=== PATIENT | female | born 1990 | race Caucasian/White ===

== ENCOUNTER 2017-09-13 20:00 | Emergency (ER) | payer MEDICAID ==
[2017-09-13 20:06] VITALS: BP 142/92
[2017-09-13] MEDS ORDERED: Cyclobenzaprine 10 MG Tab PO ONE (20:40)
--- NOTE | 2017-09-13 20:46 | EDM.PDOC ---
ED HPI GENERAL MEDICAL PROBLEM - General Chief Complaint: Back Pain or Injury Stated Complaint: BACK PAIN [id number] Time Seen by Provider: 09/13/17 20:41 Source of Information: Reports: Patient History Limitations: Reports: No Limitations - History of Present Illness INITIAL COMMENTS - FREE TEXT/NARRATIVE: states slipped on ice fell hurting low back last week unable to sleep comfortably since. did try motrin helped very little. states unable to get into see PMD. Bilateral Lower Back Pain Score (Numeric/FACES): 8 - Related Data Allergies Allergy/AdvReac Type Severity Reaction Status Date / Time amoxicillin [Amoxicillin] Allergy Rash Verified 09/13/17 20:06 Penicillins Allergy Rash Verified 09/13/17 20:06 Home Meds: Home Meds Insulin Aspart [Novolog] 1 unit SQ TID 09/05/13 [History] predniSONE 20 mg PO BRK 09/05/13 [History] Furosemide [Lasix] 40 mg PO DAILY 09/13/17 [History] Magnesium 30 mg PO DAILY 09/13/17 [History] Potassium 99 mg PO DAILY 09/13/17 [History] Spironolactone [Aldactone] 100 mg PO DAILY 09/13/17 [History] Ursodiol 500 mg PO BID 09/13/17 [History] Past Medical History - Past Health History Medical/Surgical History: Denies Medical/Surgical History Gastrointestinal History: Reports: Cholelithiasis, Hepatitis Other Gastrointestinal History: autoimmune hepatitis Endocrine/Metabolic History: Reports: Diabetes, Type I - Infectious Disease History Infectious Disease History: Reports: Hepatitis non A,B,C Social & Family History - Family History Family Medical History: Noncontributory - Tobacco Use Smoking Status *Q: Never Smoker Second Hand Smoke Exposure: No - Alcohol Use Days Per Week of Alcohol Use: 0 - Recreational Drug Use Recreational Drug Use: No - Living Situation & Occupation Living situation: Reports: with Family ED ROS GENERAL - Review of Systems Review Of Systems: ROS reveals no pertinent complaints other than HPI. ED EXAM,LOWER BACK PAIN/INJURY - Physical Exam Exam: See Below Exam Limited By: No Limitations General Appearance: Alert, WD/WN, Mild Distress, Other Ears: Hearing Grossly Normal Throat/Mouth: Normal Voice, No Airway Compromise Head: Atraumatic Neck: Non-Tender, Full Range of Motion Respiratory/Chest: No Respiratory Distress Cardiovascular: Regular Rate, Rhythm GI/Abdominal: Soft, Non-Tender Back Exam: Muscle Spasm, Paraspinal Tenderness, Other (bilateral L3-4-5 without radiculitis) Neurological: Alert, No Motor/Sensory Deficits, Oriented x 3 Psychiatric: Flat Affect Skin Exam: Warm, Dry, Normal Color Lymphatic: No Adenopathy Course - Vital Signs Last Recorded V/S: Last Vital Signs Temp 37.0 C 09/13/17 20:02 Pulse 126 H 09/13/17 20:02 Resp 18 09/13/17 20:02 BP 142/92 H 09/13/17 20:02 Pulse Ox 98 09/13/17 20:02 - Orders/Labs/Meds Orders: Active Orders 24 hr Category Date Time Status Lumbar Spine 2 or 3V [CR] Urgent Exams 09/13/17 20:49 Taken Meds: Medications Discontinued Medications Generic Name Dose Route Start Last Admin Trade Name Freq PRN Reason Stop Dose Admin Cyclobenzaprine HCl 10 mg 09/13/17 20:40 09/13/17 20:46 Flexeril PO 09/13/17 20:41 10 mg ONETIME ONE Administration - Re-Assessments/Exams Free Text/Narrative Re-Assessment/Exam: 09/13/17 22:03 results discussed with pt who is feeling much better s/p flexeril Departure - Departure Time of Disposition: 22:04 Disposition: Home, Self-Care 01 Condition: Good Clinical Impression: Lumbar contusion Qualifiers: Encounter type: initial encounter Qualified Code(s): S30.0XXA - Contusion of lower back and pelvis, initial encounter - Discharge Information Instructions: Muscle Strain, [id number] Forms: ED Department Discharge Additional Instructions: 1) rest and avoid bending lifting straining for 5 days 2) try ice or heat to sore areas 3) motrin as needed for pain 4) recheck as needed rx given; flexeril 10mg bid prn x 12 - My Orders Last 24 Hours: My Active Orders 09/13/17 20:49 Lumbar Spine 2 or 3V [CR] Urgent - Assessment/Plan Last 24 Hours: My Active Orders 09/13/17 20:49 Lumbar Spine 2 or 3V [CR] Urgent
== END 2017-09-13 22:12 | disposition home or self-care (01) ==
LOC: DL.ED 20:00
DX: S30.0XXA Contusion of lower back and pelvis, initial encounter (principal); E10.9 Type 1 diabetes mellitus without complications; Z88.1 Allergy status to other antibiotic agents; Z88.0 Allergy status to penicillin; Z79.899 Other long term (current) drug therapy; W00.9XXA Unspecified fall due to ice and snow, initial encounter
CPT/HCPCS: 72100; 99283; A9270

== ENCOUNTER 2017-09-23 03:04 | Emergency (ER) | payer MEDICAID ==
[2017-09-23] MEDS ORDERED: Ketorolac 30 MG/ML SDV IVPUSH ONE ×2 (03:31→04:56)
--- NOTE | 2017-09-23 03:35 | EDM.PDOC ---
ED HPI GENERAL MEDICAL PROBLEM - General Chief Complaint: Back Pain or Injury Stated Complaint: AMBULANCE Time Seen by Provider: 09/23/17 03:28 Source of Information: Reports: Patient History Limitations: Reports: No Limitations - History of Present Illness INITIAL COMMENTS - FREE TEXT/NARRATIVE: states was seen here 10 days ago for fall 1 week prior, had wnl X-rays and Tx with flexeril which helped but now out of, then also has pain in upper leg areas not in her back. also the swelling in her lower legs is chronic. Left Upper Leg Pain Score (Numeric/FACES): 9 - Related Data Allergies Allergy/AdvReac Type Severity Reaction Status Date / Time amoxicillin [Amoxicillin] Allergy Rash Verified 09/23/17 03:23 Penicillins Allergy Rash Verified 09/23/17 03:23 Home Meds: Home Meds Insulin Aspart [Novolog] 1 unit SQ TID 09/05/13 [History] predniSONE 20 mg PO BRK 09/05/13 [History] Furosemide [Lasix] 40 mg PO DAILY 09/13/17 [History] Magnesium 30 mg PO DAILY 09/13/17 [History] Potassium 99 mg PO DAILY 09/13/17 [History] Spironolactone [Aldactone] 100 mg PO DAILY 09/13/17 [History] Ursodiol 500 mg PO BID 09/13/17 [History] Past Medical History - Past Health History Medical/Surgical History: Denies Medical/Surgical History Gastrointestinal History: Reports: Cholelithiasis, Hepatitis Other Gastrointestinal History: autoimmune hepatitis Endocrine/Metabolic History: Reports: Diabetes, Type I - Infectious Disease History Infectious Disease History: Reports: Hepatitis non A,B,C Social & Family History - Family History Family Medical History: Noncontributory - Tobacco Use Smoking Status *Q: Never Smoker Second Hand Smoke Exposure: No - Caffeine Use Caffeine Use: Reports: Coffee, Soda - Alcohol Use Days Per Week of Alcohol Use: 0 - Recreational Drug Use Recreational Drug Use: No - Living Situation & Occupation Living situation: Reports: with Family ED ROS GENERAL - Review of Systems Review Of Systems: ROS reveals no pertinent complaints other than HPI. ED EXAM,LOWER BACK PAIN/INJURY - Physical Exam Exam: See Below Exam Limited By: No Limitations General Appearance: Alert, WD/WN, Mild Distress, Other (leg pain) Ears: Hearing Grossly Normal Throat/Mouth: Normal Voice, No Airway Compromise Head: Atraumatic Neck: Non-Tender, Full Range of Motion Respiratory/Chest: No Respiratory Distress Cardiovascular: Regular Rate, Rhythm GI/Abdominal: Soft, Non-Tender Back Exam: Other (palpable tenderness over left pelvic area>) Neurological: Alert, Oriented x 3 Psychiatric: Tearful Skin Exam: Warm, Dry, Normal Color Lymphatic: No Adenopathy Course - Vital Signs Last Recorded V/S: Last Vital Signs Temp 36.9 C 09/23/17 03:09 Pulse 128 H 09/23/17 03:09 Resp 18 09/23/17 03:09 BP 127/75 09/23/17 03:09 Pulse Ox 100 09/23/17 03:09 - Orders/Labs/Meds Orders: Active Orders 24 hr Category Date Time Status Pelvis wo Cont [CT] Urgent Exams 09/23/17 03:24 Taken CULTURE BLOOD [BC] Stat Lab 09/23/17 03:30 Results Labs: Laboratory Tests 09/23/17 09/23/17 09/23/17 Range/Units 03:30 03:30 03:30 WBC 11.2 H (5.0-10.0) 10^3/uL RBC 3.43 L (4.2-5.4) 10^6/uL Hgb 10.7 L (12.0-16.0) g/dL Hct 33.2 L (37.0-47.0) % MCV 96.8 D (80-100) fL MCH 31.2 (27.0-34.0) pg MCHC 32.2 L (33.0-35.0) g/dL Plt Count 111 L (150-450) 10^3/uL Neut % (Auto) 63.2 (42.2-75.2) % Lymph % (Auto) 24.2 (20.5-50.1) % [place] % (Auto) 11.1 H (2-8) % Eos % (Auto) 1.1 (1.0-3.0) % Baso % (Auto) 0.4 (0.0-1.0) % Add Manual Diff Yes Neutrophils % (Manual) 59 (42-75) % Band Neutrophils % 5 % Lymphocytes % (Manual) 27 (20-50) % Atypical Lymphs % 0 % Monocytes % (Manual) 8 (2-8) % Eosinophils % (Manual) 0 L (1-3) % Basophils % (Manual) 1 Hypochromasia 1+ slight Poikilocytosis 1+ slight Target Cells 1+ slight Sodium 130 L (135-145) mmol/L Potassium 2.9 L (3.6-5.0) mmol/L Chloride 96 L (101-111) mmol/L Carbon Dioxide 24.0 (21.0-31.0) mmol/L Anion Gap 12.9 BUN 15 (7-18) mg/dL Creatinine 0.5 L (0.6-1.3) mg/dL Est Cr Clr Drug Dosing 121.40 mL/min Estimated GFR (MDRD) > 60 BUN/Creatinine Ratio 30.00 Glucose 66 L (74-105) mg/dL Lactic Acid 1.8 (0.5-2.2) mmol/L Calcium 8.6 (8.4-10.2) mg/dl Total Bilirubin 17.3 H (0.2-1.0) mg/dL AST 65 H (10-42) IU/L ALT 66 H (10-60) IU/L Alkaline Phosphatase 623 H (42-121) IU/L Total Protein 5.7 L (6.7-8.2) g/dl Albumin 1.9 L (3.2-5.5) g/dl Globulin 3.8 Albumin/Globulin Ratio 0.50 Meds: Medications Discontinued Medications Generic Name Dose Route Start Last Admin Trade Name Freq PRN Reason Stop Dose Admin Ketorolac Tromethamine 15 mg 09/23/17 03:31 09/23/17 03:35 Toradol IVPUSH 09/23/17 03:32 15 mg ONETIME ONE Administration - Re-Assessments/Exams Free Text/Narrative Re-Assessment/Exam: 09/23/17 04:26 results discussed with pt & family who state they see Dr David Justin in [place] and has appt @ end of month. 09/23/17 04:[address] Dao @ [place] who kindly accepted pt for further evaluation and care. Departure - Departure Time of Disposition: 04:44 Disposition: DC/Tfer to Acute Hospital 02 Condition: Good Clinical Impression: Closed fracture head of femur Qualifiers: Encounter type: initial encounter Laterality: left Qualified Code(s): S72.052A - Unspecified fracture of head of left femur, initial encounter for closed fracture Liver failure Qualifiers: Liver failure chronicity: unspecified chronicity Hepatic coma status: without hepatic coma Qualified Code(s): K72.90 - Hepatic failure, unspecified without coma - Discharge Information Forms: Interfacility Transfer EMTALA - My Orders Last 24 Hours: My Active Orders 09/23/17 03:24 Pelvis wo Cont [CT] Urgent 09/23/17 03:30 CULTURE BLOOD [BC] Stat - Assessment/Plan Last 24 Hours: My Active Orders 09/23/17 03:24 Pelvis wo Cont [CT] Urgent 09/23/17 03:30 CULTURE BLOOD [BC] Stat
[2017-09-23 03:58] LABS: CHLORIDE,CL 96 mmol/L (101-111); SODIUM,NA 130 mmol/L (135-145)
[2017-09-23 04:55] VITALS: BP 124/70
== END 2017-09-23 05:28 ==
LOC: DL.ED 03:04
DX: S72.052A Unspecified fracture of head of left femur, initial encounter for closed fracture (principal); K72.90 Hepatic failure, unspecified without coma; E10.9 Type 1 diabetes mellitus without complications; Z88.1 Allergy status to other antibiotic agents; Z88.0 Allergy status to penicillin; Z79.899 Other long term (current) drug therapy; W19.XXXA Unspecified fall, initial encounter
CPT/HCPCS: 36415; 72192; 80053; 81001; 83605; 85025; 87040; 96374; 96376; 99285; J1885